=== PATIENT | female | born 1930 | race Hispanic/Latino ===

== ENCOUNTER 2017-01-23 06:56 | Outpatient (CLI) | payer MEDICARE ==
--- NOTE | 2017-01-23 09:04 | Fluoroscopy Report ---
MODIFIED BARIUM SWALLOW History: dysphagia. Findings: Video radiography was provided by the radiologist for speech therapy to assess the swallowing mechanism. Please refer to the formal report by speech therapy. Impression: Successful modified barium swallow.
== END 2017-01-23 06:57 | disposition home or self-care (01) ==
LOC: PT 06:56
PROVIDERS: ATTEND Family Medicine
DX: R13.12 Dysphagia, oropharyngeal phase (principal); I48.91 Unspecified atrial fibrillation
CPT/HCPCS: 74230; 92611; G8996; G8997; G8998